=== PATIENT | female | born 1960 | race African-American/Black ===

== ENCOUNTER 2021-07-18 01:08 | Emergency (ER) | payer OTHER ==
[~2021-07-18] VITALS: Ht 175.3 cm; Wt 85.0 kg
[2021-07-18] MEDS ORDERED: KETOROLAC 15MG/ML VIAL IV ONE (02:30)
[2021-07-18] MEDS ORDERED: ONDANSETRON HCL 4MG/2ML INJ IV ONE (02:30)
[2021-07-18] MEDS ORDERED: LACTATED RINGERS 1,000 ML IV SCH (02:30)
[2021-07-18 03:00] LABS: BASOPHILS % 0.9 % (0.0-2.0); EOSINOPHILS % 2.1 % (0.0-5.0); HEMATOCRIT. 35.1 % (36.0-48.0); HEMOGLOBIN. 12.1 g/dL (12.0-16.0); LYMPHOCYTES % 24.9 % (20.0-50.0); MEAN CORPUSCULAR HEMOGLOBIN 33.2 pg (28.0-32.0); MEAN CORPUSCULAR VOLUME 96.6 fL (81.0-99.0); MEAN PLATELET VOLUME 9.1 fl (7.4-10.4); MONOCYTES % 8.5 % (2.0-8.0); NEUTROPHILS % 63.6 % (40.0-76.0); PLATELET 318 x1000/uL (130-400); RED BLOOD CELL COUNT 3.64 mill/uL (4.2-5.4); RED CELL DISTRIBUTION WIDTH 13.2 % (11.6-14.6)
[2021-07-18 03:07] LABS: CHLORIDE 108 mEq/L (98-107)
[2021-07-18 03:47] LABS: CLARITY URINE CLEAR (CLEAR); COLOR URINE YELLOW (YELLOW); KETONES URINE NEGATIVE (NEGATIVE); LEUKOCYTE ESTERASE URINE NEGATIVE (NEGATIVE); NITRITE URINE NEGATIVE (NEGATIVE); OCCULT BLOOD URINE NEGATIVE (NEGATIVE); PROTEIN URINE NEGATIVE (NEGATIVE); SPECIFIC GRAVITY URINE 1.023 (1.005-1.030)
[2021-07-18] MEDS ORDERED: IOHEXOL-300 100 ML BOTTLE ONE ×2 (05:02→05:50)
[2021-07-18 08:19] VITALS: BP 118/68
== END 2021-07-18 08:21 | disposition home or self-care (01) ==
LOC: ER 01:08
DX: R10.30 Lower abdominal pain, unspecified (principal); R11.0 Nausea; I10 Essential (primary) hypertension
CPT/HCPCS: 36415; 74177; 80053; 81003; 83690; 84484; 85025; 93005; 96361; 96374; 96375; 99285; J1885; J2405; Q9967

== ENCOUNTER 2023-07-14 15:39 | Emergency (ER) | payer OTHER ==
[~2023-07-14] VITALS: Ht 165.1 cm; Wt 80.0 kg
[2023-07-14 15:45] VITALS: O2SAT 100
[2023-07-14] MEDS ORDERED: CYCLOBENZAPRINE 10MG TABLET PO ONE (17:30)
[2023-07-14] MEDS ORDERED: ACETAMINOPHEN 325MG TABLET PO ONE (17:30)
[2023-07-14] MEDS ORDERED: NAPR-1176 MT (18:47)
[2023-07-14] MEDS ORDERED: LIDO700A15 TP (18:47)
[2023-07-14 19:07] VITALS: BP 156/92; PULSE 68; RESP 14; TEMP 97.4
== END 2023-07-14 19:10 | disposition home or self-care (01) ==
LOC: ER 15:39
DX: M25.552 Pain in left hip (principal); M25.551 Pain in right hip; I10 Essential (primary) hypertension
CPT/HCPCS: 73521; 99283